=== PATIENT | female | born 1965 | race Caucasian/White ===

== ENCOUNTER 2021-08-25 10:32 | Day surgery (SDC) | payer MEDICAID, SELFPAY ==
[2021-08-25] VITALS (41 sets, daily range): BP systolic 92–119; BP diastolic 43–91; PULSE 51–95; RESP 16–22; TEMP 35.7–36.9; O2SAT 90–100; BMI 28.3
[2021-08-25] MEDS: LACTATED RINGERS 1000 ML 1,000 ML 100 ML IV (11:00)
[2021-08-25] MEDS: SODIUM CHLORIDE 0.9 % (FLUSH) 10 ML SYRINGE IVF (11:20)
[2021-08-25] MEDS: OXYCODONE (CR) 10 MG TAB.ER.12H PO (11:45)
[2021-08-25] MEDS: ACETAMINOPHEN 500 MG TABLET 1000 MG PO ×3 (11:45→23:28)
[2021-08-25] MEDS: CELECOXIB 200 MG CAPSULE PO ×2 (11:45→20:11)
[2021-08-25] MEDS: MIDAZOLAM HCL 1 MG/ML inj IVP (11:55)
[2021-08-25] MEDS: fentaNYL 100 MCG/2 ML inj IVP (11:55)
--- NOTE | 2021-08-25 12:07 | SUR.PREOP ---
TIME?OUT:?1150, right knee PT/RN/MDA?VERIFICATION?OF?SURGICAL?SITE,?PROCEDURE,?AND?CONSENT OBTAINED?PRIOR?TO?INVASIVE?PROCEDURE.
[2021-08-25] MEDS: CEFAZOLIN 2 GM INJ IVP (12:27)
--- NOTE | 2021-08-25 12:58 | W.PM.NB ---
Nerve Block Nerve Block Time Seen by Provider: 11:55 Date Seen: 08/25/21 Type of block requested by surgeon for post-operative analgesia: adductor canal Side: right Time out performed: Yes Verification of patient name: Yes Verification of date of : Yes Site marking: site marked Name of person performing procedure: Yair Assistants, if any: Claudettembrogdarrel Continuous monitoring Was continuous monitoring of O2 sat, B/P, cardiac rehabilitation specialist, recorded every 15 minutes?: Yes Procedure Checklist: sterile prep, needles and gloves Ultrasound guided. Images saved: Yes Medications given in 5ml increments after negative aspiration: Ropivicaine %: 0.5 mL: 20 Needle gauge: 22 Decadron (mg): 10 Precedex (mcg): 25 Patient tolerated procedure well: Yes Additional comments: Needle noted adjacent to nerve
--- NOTE | 2021-08-25 12:59 | P.NB_ITS ---
Nerve Block Nerve Block Time Seen by Provider: 11:55 Date Seen: 08/25/21 Type of block requested by surgeon for post-operative analgesia: geniculars Side: right Time out performed: Yes Verification of patient name: Yes Verification of date of : Yes Site marking: site marked Name of person performing procedure: Yair Continuous monitoring Was continuous monitoring of O2 sat, B/P, installation & maintenance executive, recorded every 15 minutes?: Yes Procedure Checklist: sterile prep, needles and gloves Medications given in 5ml increments after negative aspiration: Ropivicaine %: 0.5 mL: 9 Needle gauge: 25 Patient tolerated procedure well: Yes
--- NOTE | 2021-08-25 13:50 | P.ORPRC_ITS ---
Procedure Note Date of procedure: 08/25/21 Procedure: SURGEON: Cristo Delgado MD HUMAN RESOURCE MANAGER: ANGEL Lopez PREOPERATIVE DIAGNOSIS: Right knee osteoarthritis POSTOPERATIVE DIAGNOSIS: Right knee osteoarthritis NAME OF OPERATION: Right total knee arthroplasty ANESTHESIA: Spinal ESTIMATED BLOOD LOSS: 0 mL COMPLICATIONS: None SPECIMENS: None DRAINS: None PREOPERATIVE ANTIBIOTICS: Ancef 2 grams IMPLANTS: 1. J&J Attune # 7 posterior stabilized femur 2. #6 fixed-bearing tibia 3. # 7 posterior stabilized, 5 mm fixed-bearing polyethylene 4. 41 patella INDICATIONS: The patient is a 55-year-old female with a longstanding history of severe, unrelenting right knee pain secondary to end-stage (grade IV) right knee osteoarthritis. Despite appropriate nonoperative management, including activity modification, anti-inflammatories, [id number] pain medication, bracing, physical therapy, and injections they continue to have pain and disability. Operative intervention was offered. The risks, benefits and expected outcomes were discussed in detail. These included but were not limited to: Infection, bleeding, injury to blood vessel or nerve, venous thromboembolism. All questions were answered to their satisfaction. Use of an registered dental assistant rda was necessary throughout the case for patient positioning and safety, soft tissue retraction, and closure. PROCEDURE: Spinal anesthesia was administered. The patient was placed supine on the operating table. The registered dental assistant rda made sure the patient was positioned appropriately. The lower extremity was prepped and draped in the usual sterile fashion. The limb was exsanguinated with the Donte bandage. The pneumatic tourniquet was inflated to 300 mmHg. A standard anterior incision was made with the knee in flexion. Subcutaneous dissection was sharply taken through fascial layer #1. Full-thickness medial and lateral flaps were elevated. The registered dental assistant rda retracted the soft tissues and protected them throughout the case. A standard medial parapatellar approach was made. The patella was everted. The infrapatellar fat pad was preserved. The menisci and cruciate ligaments were sharply d?brided. Marginal osteophytes were d?brided with the rongeur. The drill was used to penetrate the femoral canal. The canal was aspirated and irrigated with pulse lavage. The intramedullary femoral guide was placed for a 5-degree valgus cut, removing 10 mm off the distal femur. The saw was used to make the cut. Whitesides line and the trans epicondylar axis were marked. The femoral sizing guide was pinned onto the distal femur. Three degrees of external rotation nicely parallels the transepicondylar axis. Pins were placed for posterior referencing. The four-in-one cutting guide was pinned onto the distal femur. The anterior, posterior, and chamfer cuts were made. The registered dental assistant rda protected the collateral ligaments. The box cutting guide was pinned. The box cuts were made. The boxed trial was placed and was an excellent fit. Drill holes for the lugs were made. Attention was then turned to the proximal tibia. The extramedullary tibial guide was placed for a neutral varus/valgus cut with 5 degrees of posterior slope, removing 2 mm based off the medial tibial surface. The registered dental assistant rda protected the collateral ligaments and the neurovascular bundle. The saw was used to make the cut. Trial components were placed. The knee was tight in both flexion and extension. Therefore, the guide was replaced, advancing it 2 more mm distally. The saw was used to make the cut again. Trial components were placed and now the knee was nicely balanced in both flexion and extension. Rotation of the tibial component was matched to the femur in full extension, matched to our tibial cutting pins, and marked with cautery. The trial components were removed. The tray was pinned by the registered dental assistant rda and the drill and the punch were used. The tray was removed. The punch was used again. We placed a bone plug in the femoral canal. Attention was then turned to the patella. [place] patellar thickness was 26 mm. The lobster claw resection guide was used with the 9.5 mm stacie. The saw was used to make the cut. Drill holes were made by the registered dental assistant rda. The trial was placed and was an excellent fit. Cancellous surfaces were irrigated with pulse lavage and thoroughly dried by the registered dental assistant rda. We cemented the tibial component, then the femoral component. A trial spacer was placed. The knee was brought into full extension. We then cemented the patellar component. Excessive cement was removed. The cement was allowed to harden. Any remaining excessive cement was removed with the osteotome. We impacted the 5 mm polyethylene onto the tibial tray. The knee was taken through a range of motion and was found to be nicely balanced in both flexion and extension. The patella tracks centrally. The registered dental assistant rda did a three minute dilute Betadine solution soak. The registered dental assistant rda irrigated the wound with 3 liters of normal saline via pulse lavage. The registered dental assistant rda reapproximated the extensor mechanism with #1 Vicryl in an interrupted [id number] fashion. The registered dental assistant rda then ran the extensor mechanism with a #1 PDO Stratafix. The registered dental assistant rda closed the subcutaneous tissues with a 3-0 Stratafix and the skin with a running 3-0 Stratafix in a subcuticular fashion. Glue was used to seal the skin. The registered dental assistant rda placed a dry dressing, IRMA stocking, and Polar Care. Sponge and needle counts were correct x2. The patient tolerated the procedure well. There were no apparent complications. They were carefully transferred to the hospital bed and taken to the postanesthesia care unit in satisfactory condition. PLAN: The patient will be mobilized with physical therapy. Aspirin will be used for DVT prophylaxis. They will be discharged to home once medically appropriate.
--- NOTE | 2021-08-25 14:26 | W.ANESCHARGE ---
Anesthesia Charges Start Date/Time Anesthesia Start Date: 08/25/21 Anesthesia Start Time: 12:17 Stop Date/Time Anesthesia Stop Date: 08/25/21 Anesthesia Stop Time: 14:20 Summary Emergency: No
--- NOTE | 2021-08-25 14:29 | CRLHL7_ITS ---
For Patients: As a result of the Cures Act, medical imaging exams and procedure reports are released immediately into your electronic medical record. You may view this report before your referring provider. If you have questions, please contact your health care provider. Indication: POST OP TKA Technique: Two views right knee Findings/Impression: Hardware from a right total knee arthroplasty is in satisfactory position. Bone alignment is normal. No sign of acute fracture. Postop changes are within normal limits. Dictated by Chris Ramos MD @ 08/26/2021 8:29:53 AM (Electronically Signed)
--- NOTE | 2021-08-25 15:06 | W.ANESCHARGE ---
Anesthesia Charges Start Date/Time Anesthesia Start Date: 08/25/21 Anesthesia Start Time: 12:17 Stop Date/Time Anesthesia Stop Date: 08/25/21 Anesthesia Stop Time: 14:20 Summary Emergency: No
[2021-08-25] MEDS: HYDROmorphone 0.5 mg/0.5 ml inj IVP (15:30)
--- NOTE | 2021-08-25 15:51 | PM.IMCN1 ---
Date of Consult Consult date: 08/25/21 Primary Care Provider: Fahad Boateng MD Consult Narrative Reason for consult: Medical management of comorbidities Narrative: Ivone Bell is a 55 year old female who presented to the hospital today for a right TKA with orthopedic surgery. Her procedure went well and she has no concerns for the hospitalist staff at this time. Her medical comorbidities include factor 5 Leiden deficiency (patient was tested for this after a sister had a DVT. She believes she is heterozygous for the mutation and has never had a blood clot herself), mild intermittent asthma, anxiety, allergic rhinitis, migraine headaches, and GERD. She has had surgery in the past without surgical or anesthetic complications. She has never had any postoperative complications such as DVT or PE. Ivone lives independently, and will be staying with her mother in [place], [place] during the postoperative period. She is a nonsmoker, non-ETOH user. Review of Systems Status of ROS: Reports: 10 or more systems reviewed and unremarkable except as noted in History and below PFSH PFS Medical History (Updated 08/25/21 @ 15:57 by Fátima Soriano MD) Anxiety Depression Factor 5 Leiden mutation, heterozygous History of ganglion cyst History of migraine Surgical History (Updated 08/25/21 @ 15:57 by Fátima Soriano MD) History of arthroscopy of left knee (2014) History of hernia repair Status post carpal tunnel release Status post cervical spinal arthrodesis Status post Siddharth fundoplication Status post tubal ligation Total knee replacement status Family History (Updated 08/23/21 @ 14:05 by Purvi Velasquez RN) Maternal Grandmother Heart attack Colorectal cancer Mother Factor 5 Leiden mutation, heterozygous Sister Factor 5 Leiden mutation, heterozygous Depression Social History (Updated 08/24/21 @ 14:41 by Fahad Boateng MD) Narrative: Marital Status: , 2 adult children, walks for exercise 5-6 days per week. 5 siblings Occupation: Caregiver Alcohol Use: Yes (occ) 6 drinks per week. No tobacco or recreational drug use. Highest level of school completed/degree received: 12th grade, no diploma Smoking Status: Former smoker What tobacco products do you use: cigarettes Smoking quit date/years: <= 15 years ago Do you use any of these nicotine containing products: None Second hand tobacco smoke exposure: Yes How often do you have a drink containing alcohol: never AUDIT-C Alcohol total score: 0 Non-prescribed substance use: denies use and over the counter (eg: immodium) Non-prescribed substance use details: vitamin D, zinc, Tylenol Caffeine: Yes (Monster energy drink 1/day; Coke 1-2 cans/day) Meds Home Medications and Allergies Home Medications Medication Instructions Recorded Confirmed Type albuterol sulfate 90 mcg/actuation 2 inh INHALATION Q6H PRN 08/10/21 08/25/21 History aerosol inhaler cetirizine 10 mg tablet 10 mg PO DAILY 08/10/21 08/25/21 History escitalopram oxalate 20 mg tablet 20 mg PO DAILY 08/10/21 08/25/21 History fluticasone propionate 50 1 spray INTRANASAL BID PRN g 08/10/21 08/25/21 History mcg/actuation nasal spray,suspension lorazepam 1 mg tablet 1 mg PO BID PRN tab 08/10/21 08/25/21 History cholecalciferol (vitamin D3) 50 2,000 unit PO DAILY 08/24/21 08/25/21 History mcg (2,000 unit) tablet (D3 DOTS) zinc sulfate 50 mg zinc (220 mg) 50 mg PO DAILY 08/24/21 08/25/21 History capsule (Orazinc) Home Medication Comments: Confirmed with patient Allergies Allergy/AdvReac Type Severity Reaction Status Date / Time Penicillins Allergy Mild Rash Verified 08/25/21 10:59 tomato AdvReac Intermediate Rash Verified 08/25/21 10:59 Gold AdvReac Intermediate Rash Uncoded 08/25/21 10:59 Exam Narrative: Exam Narrative: GEN: Alert and oriented, answering questions appropriately HEENT: Normal external ears, EOMIs bilaterally, no scleral icterus CV: RRR, No concerning murmurs, rubs, or gallops R: LCTA bilaterally without concerning wheezing, rales, or rhonchi. Air movement is adequate Ext: wwp, no concerning edema, wearing Ruperto hose Skin: No concerning skin lesions or rashes on exposed skin Neuro: Nonfocal Psych: Appropriate Const: Vital Signs, click to edit/add: Vital Signs - 24 hr 08/25/21 11:15 08/25/21 11:55 08/25/21 12:00 Temperature 97.6 F Pulse Rate 60 59 L 64 Respiratory Rate 20 20 20 Blood Pressure 119/74 118/70 112/67 Pulse Oximetry 95 95 08/25/21 12:10 08/25/21 14:17 08/25/21 14:20 Temperature 97.8 F Pulse Rate 58 L 60 67 Respiratory Rate 16 18 16 Blood Pressure 102/61 98/67 98/61 Pulse Oximetry 95 95 97 08/25/21 14:22 08/25/21 14:25 08/25/21 14:27 Temperature Pulse Rate 66 60 67 Respiratory Rate 18 Blood Pressure 100/58 L 92/67 92/57 L Pulse Oximetry 98 95 97 08/25/21 14:30 08/25/21 14:32 08/25/21 14:35 Temperature Pulse Rate 68 63 64 Respiratory Rate 16 17 Blood Pressure 99/65 99/65 107/90 H Pulse Oximetry 96 97 98 08/25/21 14:38 08/25/21 14:40 08/25/21 14:42 Temperature Pulse Rate 61 57 L 71 Respiratory Rate 17 Blood Pressure 107/90 H 99/74 99/74 Pulse Oximetry 99 94 94 08/25/21 14:45 08/25/21 14:48 08/25/21 14:50 Temperature Pulse Rate 51 L 55 L 57 L Respiratory Rate 18 20 Blood Pressure 94/60 94/60 100/43 L Pulse Oximetry 96 100 98 08/25/21 14:52 08/25/21 14:55 08/25/21 14:57 Temperature Pulse Rate 57 L 66 59 L Respiratory Rate 18 Blood Pressure 100/43 L 105/63 105/63 Pulse Oximetry 99 99 93 08/25/21 15:00 08/25/21 15:02 08/25/21 15:03 Temperature 97.8 F Pulse Rate 54 L 53 L 52 L Respiratory Rate 18 Blood Pressure 107/67 107/67 Pulse Oximetry 98 99 98 08/25/21 15:04 08/25/21 15:05 08/25/21 15:06 Temperature Pulse Rate 62 63 58 L Respiratory Rate Blood Pressure Pulse Oximetry 97 98 100 Assessment and Plan Assessment and plan (1) Factor 5 Leiden mutation, heterozygous: Status: Acute (2) Anxiety and depression: Status: Acute (3) Asthma: Status: Acute (4) Anxiety: Status: Acute (5) Total knee replacement status: Status: Acute Plan Continue home medications for above-mentioned comorbidities. Patient is heterozygous for factor 5 Leiden mutation with no personal history of DVT or PE. Given risk, would use Xarelto for prophylaxis. Anticipate routine postoperative cares and course.
[2021-08-25] MEDS: OXYCODONE 5 MG TABLET PO ×3 (16:22→22:57)
[2021-08-25 17:56] LABS: Sodium* 138 mmol/L (135-149)
[2021-08-25] MEDS: CEFAZOLIN 2 GM in 0.9 % SODIUM CHLORIDE Mini-bag 100 ML IVPB (18:45)
--- NOTE | 2021-08-25 19:20 | PC.NURSE ---
Pt return from OR at 1500, seen by Dr Soriano. Pt pain 3-5/10 and controlled with Dilaudid x1 for burning pain and then Oxycodone with a large reg. diet. See charting for VS. Up with 2 assist and walker, needed only SBA.
[2021-08-25] MEDS: SENNOSIDES 1 TAB TABLET 2 TAB PO (20:11)
--- NOTE | 2021-08-25 22:56 | PC.NURSE ---
Shift note 19-23: Pt alert, uses call light for needs. Up to BR w/ SBA and walker, moving well. Rating pain to R knee 3-6/10, verbalizes adequate pain relief utilizing scheduled Tylenol/Celebrex, PRN Oxycodone, and cryocuff to surgical site. R knee drsg CDI, CMS intact. Plans to DC home w/ mother tomorrow.
[2021-08-26] MEDS: OXYCODONE 5 MG TABLET PO ×4 (01:50→12:35)
[2021-08-26] MEDS: CEFAZOLIN 2 GM in 0.9 % SODIUM CHLORIDE Mini-bag 100 ML IVPB ×2 (01:50→09:31)
[2021-08-26 03:00] VITALS: BP 123/76; PULSE 79; RESP 18; TEMP 36.7
[2021-08-26] MEDS: HYDROmorphone 0.5 mg/0.5 ml inj IVP (04:24)
--- NOTE | 2021-08-26 05:30 | PC.NURSE ---
[id number] Pt with fluctuating pain throughout night, prn oxy administered with minimal relief, prn dilaudid given x1 and which point pt able to sleep. Up to br x2, voiding well, walked halls x1, tolerated activity but had increased R knee pain after. Up to recliner approx 0430. cyrocuff to R knee throughout shift, tolerating oral intake, denies N/V. pt states she has factor 5 educated on s/s of blood clot.
[2021-08-26] MEDS: ACETAMINOPHEN 500 MG TABLET 1000 MG PO ×2 (05:53→12:34)
[2021-08-26 06:50] LABS: Basophils Absolute Auto 0.01 K/uL (0.00-0.30); Basophils Percent Auto 0.1 % (0.0-3.0); Hematocrit 36.7 % (33.0-51.0); Hemoglobin* 11.8 gm/dL (12.0-16.0); Immature Granulocytes Abs Auto 0.01 K/uL (0.00-0.30); Lymphocytes Percent Auto 9.9 % (20-44); Mean Corpuscular HGB Conc 32 gm/dL (32-36); Mean Corpuscular Hemoglobin 28 pg (26-34); Mean Corpuscular Volume 88 fL (80-100); Monocytes Percent Auto 7.7 % (0.0-11.0); Neutrophils Percent Auto 82.2 % (42.0-72.0); Platelet Count* 320 K/uL (140-440); RDW Coefficient of Variation % 12.9 % (11.5-15.5); Red Blood Count 4.17 m/uL (4.00-5.20); White Blood Count* 10.96 K/uL (4.50-11.00)
[2021-08-26 07:00] VITALS: BP 131/80; PULSE 76; RESP 18; TEMP 36.7; O2SAT 98
[2021-08-26 07:02] LABS: Slide Review Reflex No
[2021-08-26 07:09] LABS: INR 0.98 (0.91-1.10); Prothrombin Time 13.3 Seconds
[2021-08-26 07:11] LABS: Chloride* 106 mmol/L (96-114)
[2021-08-26 07:12] LABS: Sodium* 136 mmol/L (135-149)
[2021-08-26 07:15] LABS: Carbon Dioxide* 24 mmol/L (20-32)
[2021-08-26] MEDS: CELECOXIB 200 MG CAPSULE PO (09:28)
[2021-08-26] MEDS: SENNOSIDES 1 TAB TABLET 2 TAB PO (09:29)
[2021-08-26] MEDS: RIVAROXABAN 10 MG TABLET PO (09:29)
--- NOTE | 2021-08-26 09:56 | PM.ORPN ---
Subjective Subjective Time Seen by Provider: 07:30 Date Seen: 08/26/21 Principal diagnosis: Status post right knee replacement Interval history: Ivone is comfortable this morning. She plans to discharge to home today. Ortho Exam Narrative Exam Narrative: Alert and oriented x3. Patient is in no acute distress. Converses without labored breathing. Hearing is grossly intact. Ambulates with a walker. Examination of the right knee shows the incision is covered with an intact dressing. Mild effusion. Mild soft tissue edema about the right knee. Bilateral calves are soft and nontender. CMS intact right lower extremity. Const Vital Signs, click to edit/add: Vital Signs - 24 hr 08/25/21 11:15 08/25/21 11:55 08/25/21 12:00 Temperature 97.6 F Pulse Rate 60 59 L 64 Pulse Rate [Left Pulse Oximeter] Respiratory Rate 20 20 20 Blood Pressure 119/74 118/70 112/67 Blood Pressure [Right Arm] Pulse Oximetry 95 95 08/25/21 12:10 08/25/21 14:17 08/25/21 14:20 Temperature 97.8 F Pulse Rate 58 L 60 67 Pulse Rate [Left Pulse Oximeter] Respiratory Rate 16 18 16 Blood Pressure 102/61 98/67 98/61 Blood Pressure [Right Arm] Pulse Oximetry 95 95 97 08/25/21 14:22 08/25/21 14:25 08/25/21 14:27 Temperature Pulse Rate 66 60 67 Pulse Rate [Left Pulse Oximeter] Respiratory Rate 18 Blood Pressure 100/58 L 92/67 92/57 L Blood Pressure [Right Arm] Pulse Oximetry 98 95 97 08/25/21 14:30 08/25/21 14:32 08/25/21 14:35 Temperature Pulse Rate 68 63 64 Pulse Rate [Left Pulse Oximeter] Respiratory Rate 16 17 Blood Pressure 99/65 99/65 107/90 H Blood Pressure [Right Arm] Pulse Oximetry 96 97 98 08/25/21 14:38 08/25/21 14:40 08/25/21 14:42 Temperature Pulse Rate 61 57 L 71 Pulse Rate [Left Pulse Oximeter] Respiratory Rate 17 Blood Pressure 107/90 H 99/74 99/74 Blood Pressure [Right Arm] Pulse Oximetry 99 94 94 08/25/21 14:45 08/25/21 14:48 08/25/21 14:50 Temperature Pulse Rate 51 L 55 L 57 L Pulse Rate [Left Pulse Oximeter] Respiratory Rate 18 20 Blood Pressure 94/60 94/60 100/43 L Blood Pressure [Right Arm] Pulse Oximetry 96 100 98 08/25/21 14:52 08/25/21 14:55 08/25/21 14:57 Temperature Pulse Rate 57 L 66 59 L Pulse Rate [Left Pulse Oximeter] Respiratory Rate 18 Blood Pressure 100/43 L 105/63 105/63 Blood Pressure [Right Arm] Pulse Oximetry 99 99 93 08/25/21 15:00 08/25/21 15:02 08/25/21 15:03 Temperature 97.8 F Pulse Rate 54 L 53 L 52 L Pulse Rate [Left Pulse Oximeter] Respiratory Rate 18 Blood Pressure 107/67 107/67 Blood Pressure [Right Arm] Pulse Oximetry 98 99 98 08/25/21 15:04 08/25/21 15:05 08/25/21 15:06 Temperature Pulse Rate 62 63 58 L Pulse Rate [Left Pulse Oximeter] Respiratory Rate Blood Pressure Blood Pressure [Right Arm] Pulse Oximetry 97 98 100 08/25/21 15:35 08/25/21 15:45 08/25/21 16:00 Temperature 96.3 F L 96.4 F L Pulse Rate Pulse Rate [Left Pulse Oximeter] 55 L 65 63 Respiratory Rate 16 20 16 Blood Pressure Blood Pressure [Right Arm] 100/59 L 99/53 L 98/71 Pulse Oximetry 97 90 99 08/25/21 16:13 08/25/21 16:15 08/25/21 16:30 Temperature 96.8 F L Pulse Rate 62 Pulse Rate [Left Pulse Oximeter] 58 L 74 Respiratory Rate 20 20 18 Blood Pressure Blood Pressure [Right Arm] 115/66 107/91 H Pulse Oximetry 98 99 08/25/21 16:45 08/25/21 17:15 08/25/21 18:15 Temperature 97.1 F L 97.4 F L Pulse Rate Pulse Rate [Left Pulse Oximeter] 66 91 90 Respiratory Rate 20 16 16 Blood Pressure Blood Pressure [Right Arm] 108/68 108/68 110/65 Pulse Oximetry 98 98 99 08/25/21 19:00 08/25/21 19:08 08/25/21 19:15 Temperature 97.3 F L 98.3 F Pulse Rate 95 Pulse Rate [Left Pulse Oximeter] 80 93 Respiratory Rate 16 22 18 Blood Pressure 106/57 L Blood Pressure [Right Arm] 106/57 L 102/58 L Pulse Oximetry 98 96 100 08/25/21 20:05 08/25/21 23:30 08/26/21 03:00 Temperature 98.3 F 98.4 F 98.1 F Pulse Rate 92 Pulse Rate [Left Pulse Oximeter] 80 79 Respiratory Rate 18 18 18 Blood Pressure 117/67 Blood Pressure [Right Arm] 116/72 123/76 Pulse Oximetry 97 97 08/26/21 07:00 Temperature 98.1 F Pulse Rate Pulse Rate [Left Pulse Oximeter] 76 Respiratory Rate 18 Blood Pressure Blood Pressure [Right Arm] 131/80 Pulse Oximetry 98 Assessment and Plan Assessment and plan (1) Factor 5 Leiden mutation, heterozygous: Status: Acute (2) Anxiety and depression: Status: Acute (3) Asthma: Status: Acute (4) Anxiety: Status: Acute (5) Total knee replacement status: Status: Acute Plan Plan for discharge is today to home if they meet discharge criteria. She has factor 5 Leiden. DVT prophylaxis includes Xarelto 10 mg daily for total of 13 days, then aspirin 81 mg b.i.d. for 17 days. Ruperto stockings x1 month may remove for 1 hr per day, frequent ambulation Remove dressing in 1 week. Observe wound and phone Orthopedics with any questions or concerns Return to clinic in 1 week for a wound check Return to clinic in [address] Delgado Minimize narcotic use. Wean off and discontinue soon as possible. Activities as tolerated. No strenuous activity. Outpatient physical therapy as scheduled. Ice and elevate the operative extremity. No restriction on ice.
--- NOTE | 2021-08-26 11:57 | PC.NURSE ---
Addendum entered by Toya Montoya RN 08/26/21 16:55: Pt. Discharged from med/surg at 1510 via wheelchair accompanied by sister. IV removed, intact and patent. Belongings list and discharge instructions given and signed. Original Note: Pt. alert and oriented x3, PRN oxy 10mg administered after PT activity, tolerated ambulating w/PT well except for pain in right knee. cyrocuff to R knee throughout shift, tolerating oral intake, denies N/V. Called ortho at 1100 to confirm PT orders were sent by Sandy, ortho confirmed orders were faxed 08/16/21.
--- NOTE | 2021-08-26 13:09 | P.DS_ITS ---
DS: Providers Provider Time Seen by Provider: 08:00 Date Seen: 08/26/21 Date of admission: 08-25-21 Primary care physician: Fahad Boateng MD Consults: 08/25/21 15:52 Consult to Occupational Therapy [CONS] Routine Comment: Reason(s) for OT Consult:: ADLs Prior to Discharge Any Restrictions?:: See Comment Comment: See nursing activity order for any restrictions. Consult to Physical Therapy [CONS] Routine Comment: Ambulate in the liu today. Reason(s) for PT Consult:: TKA TX Protocol POD#0 Any Restrictions?:: See Comment Comment: See nursing activity order for any restrictions. Consult to Physician [CONS] Routine Comment: Consulting Provider: Hospitalists Has provider been notified: No Consult to [facility] [employer] [CONS] Routine Comment: Reason for Consult:: Discharge Planning Needs Attending Physician on discharge: Cristo Delgado MD Date of Discharge: 08/26/21 DS: Diagnosis Discharge Diagnosis (1) Total knee replacement status: Status: Acute DS: Summary Time Spent with Patient Time attestation: Total time spent providing and/or coordinating discharge services: Exam Const: Vital Signs, click to edit/add: Vital Signs - 24 hr 08/25/21 14:17 08/25/21 14:20 08/25/21 14:22 Temperature 97.8 F Pulse Rate 60 67 66 Pulse Rate [Left P ulse Oximeter] Respiratory Rate 18 16 Blood Pressure 98/67 98/61 100/58 L Blood Pressure [Ri ght Arm] Pulse Oximetry 95 97 98 08/25/21 14:25 08/25/21 14:27 08/25/21 14:30 Temperature Pulse Rate 60 67 68 Pulse Rate [Left P ulse Oximeter] Respiratory Rate 18 16 Blood Pressure 92/67 92/57 L 99/65 Blood Pressure [Ri ght Arm] Pulse Oximetry 95 97 96 08/25/21 14:32 08/25/21 14:35 08/25/21 14:38 Temperature Pulse Rate 63 64 61 Pulse Rate [Left P ulse Oximeter] Respiratory Rate 17 Blood Pressure 99/65 107/90 H 107/90 H Blood Pressure [Ri ght Arm] Pulse Oximetry 97 98 99 08/25/21 14:40 08/25/21 14:42 08/25/21 14:45 Temperature Pulse Rate 57 L 71 51 L Pulse Rate [Left P ulse Oximeter] Respiratory Rate 17 18 Blood Pressure 99/74 99/74 94/60 Blood Pressure [Ri ght Arm] Pulse Oximetry 94 94 96 08/25/21 14:48 08/25/21 14:50 08/25/21 14:52 Temperature Pulse Rate 55 L 57 L 57 L Pulse Rate [Left P ulse Oximeter] Respiratory Rate 20 Blood Pressure 94/60 100/43 L 100/43 L Blood Pressure [Ri ght Arm] Pulse Oximetry 100 98 99 08/25/21 14:55 08/25/21 14:57 08/25/21 15:00 Temperature 97.8 F Pulse Rate 66 59 L 54 L Pulse Rate [Left P ulse Oximeter] Respiratory Rate 18 18 Blood Pressure 105/63 105/63 107/67 Blood Pressure [Ri ght Arm] Pulse Oximetry 99 93 98 08/25/21 15:02 08/25/21 15:03 08/25/21 15:04 Temperature Pulse Rate 53 L 52 L 62 Pulse Rate [Left P ulse Oximeter] Respiratory Rate Blood Pressure 107/67 Blood Pressure [Ri ght Arm] Pulse Oximetry 99 98 97 08/25/21 15:05 08/25/21 15:06 08/25/21 15:35 Temperature 96.3 F L Pulse Rate 63 58 L Pulse Rate [Left P ulse Oximeter] 55 L Respiratory Rate 16 Blood Pressure Blood Pressure [Ri ght Arm] 100/59 L Pulse Oximetry 98 100 97 08/25/21 15:45 08/25/21 16:00 08/25/21 16:13 Temperature 96.4 F L 96.8 F L Pulse Rate 62 Pulse Rate [Left P ulse Oximeter] 65 63 Respiratory Rate 20 16 20 Blood Pressure Blood Pressure [Ri ght Arm] 99/53 L 98/71 Pulse Oximetry 90 99 08/25/21 16:15 08/25/21 16:30 08/25/21 16:45 Temperature 97.1 F L Pulse Rate Pulse Rate [Left P ulse Oximeter] 58 L 74 66 Respiratory Rate 20 18 20 Blood Pressure Blood Pressure [Ri ght Arm] 115/66 107/91 H 108/68 Pulse Oximetry 98 99 98 08/25/21 17:15 08/25/21 18:15 08/25/21 19:00 Temperature 97.4 F L Pulse Rate Pulse Rate [Left P ulse Oximeter] 91 90 80 Respiratory Rate 16 16 16 Blood Pressure Blood Pressure [Ri ght Arm] 108/68 110/65 106/57 L Pulse Oximetry 98 99 98 08/25/21 19:08 08/25/21 19:15 08/25/21 20:05 Temperature 97.3 F L 98.3 F 98.3 F Pulse Rate 95 92 Pulse Rate [Left P ulse Oximeter] 93 Respiratory Rate 22 18 18 Blood Pressure 106/57 L 117/67 Blood Pressure [Ri ght Arm] 102/58 L Pulse Oximetry 96 100 97 08/25/21 23:30 08/26/21 03:00 08/26/21 07:00 Temperature 98.4 F 98.1 F 98.1 F Pulse Rate Pulse Rate [Left P ulse Oximeter] 80 79 76 Respiratory Rate 18 18 18 Blood Pressure Blood Pressure [Ri ght Arm] 116/72 123/76 131/80 Pulse Oximetry 97 98 DS: Data Data Completed and Pending Labs on day of discharge: Labs from last 24 hours 08/26/21 08/26/21 08/26/21 05:45 05:45 05:45 WBC 10.96 RBC 4.17 Hgb 11.8 L Hct 36.7 MCV 88 MCH 28 MCHC 32 RDW Coeff of Cesar 12.9 Plt Count 320 Neut % (Auto) 82.2 H Lymph % (Auto) 9.9 L [place] % (Auto) 7.7 Eos % (Auto) 0.0 Baso % (Auto) 0.1 Neut # (Auto) 9.00 H Lymph # (Auto) 1.10 [place] # (Auto) 0.80 Eos # (Auto) 0.00 Baso # (Auto) 0.01 Abs Immat Gran (auto) 0.01 INR 0.98 Sodium 136 Potassium 4.0 Chloride 106 Carbon Dioxide 24 08/25/21 17:29 WBC RBC Hgb Hct MCV MCH MCHC RDW Coeff of Cesar Plt Count Neut % (Auto) Lymph % (Auto) [place] % (Auto) Eos % (Auto) Baso % (Auto) Neut # (Auto) Lymph # (Auto) [place] # (Auto) Eos # (Auto) Baso # (Auto) Abs Immat Gran (auto) INR Sodium 138 Potassium Chloride Carbon Dioxide Discharge Plan Discharge Disposition: Home, Self-Care Discharging Surgeon: Cristo Delgado Follow-Up Appointment: One week Prescriptions: New acetaminophen 500 mg Tablet 500 - 1,000 mg PO Q6H MDD 4000mg per day PRNQty: 100 0RF oxycodone 5 mg Tablet 2.5 - 5 mg PO Q4-6H PRN (Reason: Pain) Qty: 42 0RF Rx Instructions: minimize, discontinue as soon as possible Xarelto 10 mg Tablet 10 mg PO DAILY Qty: 12 0RF Rx Instructions: for dvt prophylaxis, take this medication daily for 12 days, then Aspirin 81mg twice daily for 17 days sennosides [Senna Lax] 8.6 mg Tablet 2 tab PO BID PRNQty: 100 0RF aspirin [Aspirin Childrens] 81 mg tablet,chewable 81 mg PO BID 17 Days Qty: 34 0RF Rx Instructions: take Aspirin for 17 days after you have completed Xarelto for 12 days. No Action lorazepam 1 mg tablet 1 mg PO BID PRN (Reason: anxiety) 0RF Rx Instructions: Take as needed for severe anxiety. escitalopram oxalate 20 mg tablet 20 mg PO DAILY 0RF cetirizine 10 mg tablet 10 mg PO DAILY 0RF albuterol sulfate 90 mcg/actuation HFA aerosol inhaler 2 inh inhalation Q6H PRN0RF fluticasone propionate 50 mcg/actuation spray,suspension 1 spray intranasal BID PRN (Reason: allergy symptoms) 0RF cholecalciferol (vitamin D3) [D3 DOTS] 50 mcg (2,000 unit) tablet 2,000 unit PO DAILY 0RF zinc sulfate [Orazinc] 50 mg zinc (220 mg) capsule 50 mg PO DAILY 0RF Activity Level: Activity as Tolerated and No strenuous activity Activity Detail: Keep dressing on for 1 week. Dressing is waterproof. May shower. Surgical glue covers the wound. Attend Outpatient physical therapy as scheduled. Ice operative extremity without restriction. Wear compression stockings for 1 month post surgery. May remove for 1 hour per day. Notify Orthopedics with any questions or concerns ([phone]). Discharge Diet: Regular Patient Instructions: Acetaminophen (By mouth), Aspirin (By mouth), Oxycodone, Rapid Release (By mouth), Rivaroxaban (By mouth), Senna (By mouth), Knee Replacement (DC) Follow-up: Erichsen, Genny PA [Other] - 08/31/21 2:40 pm (At this follow up appointment they will schedule your appointment to see Dr. Delgado) Fahad Boateng MD [Primary Care Provider] - Discharge Orders: Discharge Order (Routine); Ordered 08/26/21 Ordered By: Andrew Sales
--- NOTE | 2021-08-26 13:58 | P.DS_ITS ---
DS: Providers Provider Date Seen: 08/26/21 Primary care physician: Fahad Boateng MD Consults: Attending Physician on discharge: Cristo Delgado MD Date of Discharge: 08/26/21 DS: Diagnosis Discharge Diagnosis (1) Total knee replacement status: Status: Acute Problem details: Uncomplicated surgery and early postoperative course (2) Factor 5 Leiden mutation, heterozygous: Status: Acute Problem details: Rivaroxaban 10 mg daily for VTE prophylaxis DS: Summary Hospital Course Hospital Course: 55-year-old female admitted to the hospital for right total knee arthroplasty. Procedure was uncomplicated. Postoperative recovery has been uncomplicated. Status at Discharge Functional status at discharge: uses cane/walker Overall status at discharge: patient is back to baseline Time Spent with Patient Time attestation: Total time spent providing and/or coordinating discharge services: Time spent: Less than 30 minutes Exam Narrative: Exam Narrative: She is alert and appears in no distress. Breathing is unlabored. Abdomen is soft without tenderness. She has intact pulses, strength, sensation in both lower extremities. Const: Vital Signs, click to edit/add: Vital Signs - 24 hr 08/25/21 14:17 08/25/21 14:20 08/25/21 14:22 Temperature 97.8 F Pulse Rate 60 67 66 Pulse Rate [Left P ulse Oximeter] Respiratory Rate 18 16 Blood Pressure 98/67 98/61 100/58 L Blood Pressure [Ri ght Arm] Pulse Oximetry 95 97 98 08/25/21 14:25 08/25/21 14:27 08/25/21 14:30 Temperature Pulse Rate 60 67 68 Pulse Rate [Left P ulse Oximeter] Respiratory Rate 18 16 Blood Pressure 92/67 92/57 L 99/65 Blood Pressure [Ri ght Arm] Pulse Oximetry 95 97 96 08/25/21 14:32 08/25/21 14:35 08/25/21 14:38 Temperature Pulse Rate 63 64 61 Pulse Rate [Left P ulse Oximeter] Respiratory Rate 17 Blood Pressure 99/65 107/90 H 107/90 H Blood Pressure [Ri ght Arm] Pulse Oximetry 97 98 99 08/25/21 14:40 08/25/21 14:42 08/25/21 14:45 Temperature Pulse Rate 57 L 71 51 L Pulse Rate [Left P ulse Oximeter] Respiratory Rate 17 18 Blood Pressure 99/74 99/74 94/60 Blood Pressure [Ri ght Arm] Pulse Oximetry 94 94 96 08/25/21 14:48 08/25/21 14:50 08/25/21 14:52 Temperature Pulse Rate 55 L 57 L 57 L Pulse Rate [Left P ulse Oximeter] Respiratory Rate 20 Blood Pressure 94/60 100/43 L 100/43 L Blood Pressure [Ri ght Arm] Pulse Oximetry 100 98 99 08/25/21 14:55 08/25/21 14:57 08/25/21 15:00 Temperature 97.8 F Pulse Rate 66 59 L 54 L Pulse Rate [Left P ulse Oximeter] Respiratory Rate 18 18 Blood Pressure 105/63 105/63 107/67 Blood Pressure [Ri ght Arm] Pulse Oximetry 99 93 98 08/25/21 15:02 08/25/21 15:03 08/25/21 15:04 Temperature Pulse Rate 53 L 52 L 62 Pulse Rate [Left P ulse Oximeter] Respiratory Rate Blood Pressure 107/67 Blood Pressure [Ri ght Arm] Pulse Oximetry 99 98 97 08/25/21 15:05 08/25/21 15:06 08/25/21 15:35 Temperature 96.3 F L Pulse Rate 63 58 L Pulse Rate [Left P ulse Oximeter] 55 L Respiratory Rate 16 Blood Pressure Blood Pressure [Ri ght Arm] 100/59 L Pulse Oximetry 98 100 97 08/25/21 15:45 08/25/21 16:00 08/25/21 16:13 Temperature 96.4 F L 96.8 F L Pulse Rate 62 Pulse Rate [Left P ulse Oximeter] 65 63 Respiratory Rate 20 16 20 Blood Pressure Blood Pressure [Ri ght Arm] 99/53 L 98/71 Pulse Oximetry 90 99 08/25/21 16:15 08/25/21 16:30 08/25/21 16:45 Temperature 97.1 F L Pulse Rate Pulse Rate [Left P ulse Oximeter] 58 L 74 66 Respiratory Rate 20 18 20 Blood Pressure Blood Pressure [Ri ght Arm] 115/66 107/91 H 108/68 Pulse Oximetry 98 99 98 08/25/21 17:15 08/25/21 18:15 08/25/21 19:00 Temperature 97.4 F L Pulse Rate Pulse Rate [Left P ulse Oximeter] 91 90 80 Respiratory Rate 16 16 16 Blood Pressure Blood Pressure [Ri ght Arm] 108/68 110/65 106/57 L Pulse Oximetry 98 99 98 08/25/21 19:08 08/25/21 19:15 08/25/21 20:05 Temperature 97.3 F L 98.3 F 98.3 F Pulse Rate 95 92 Pulse Rate [Left P ulse Oximeter] 93 Respiratory Rate 22 18 18 Blood Pressure 106/57 L 117/67 Blood Pressure [Ri ght Arm] 102/58 L Pulse Oximetry 96 100 97 08/25/21 23:30 08/26/21 03:00 08/26/21 07:00 Temperature 98.4 F 98.1 F 98.1 F Pulse Rate Pulse Rate [Left P ulse Oximeter] 80 79 76 Respiratory Rate 18 18 18 Blood Pressure Blood Pressure [Ri ght Arm] 116/72 123/76 131/80 Pulse Oximetry 97 98 Documenting provider has reviewed patient's vital signs: yes DS: Data Data Completed and Pending Labs on day of discharge: Labs from last 24 hours 08/26/21 08/26/21 08/26/21 05:45 05:45 05:45 WBC 10.96 RBC 4.17 Hgb 11.8 L Hct 36.7 MCV 88 MCH 28 MCHC 32 RDW Coeff of Cesar 12.9 Plt Count 320 Neut % (Auto) 82.2 H Lymph % (Auto) 9.9 L [place] % (Auto) 7.7 Eos % (Auto) 0.0 Baso % (Auto) 0.1 Neut # (Auto) 9.00 H Lymph # (Auto) 1.10 [place] # (Auto) 0.80 Eos # (Auto) 0.00 Baso # (Auto) 0.01 Abs Immat Gran (auto) 0.01 INR 0.98 Sodium 136 Potassium 4.0 Chloride 106 Carbon Dioxide 24 08/25/21 17:29 WBC RBC Hgb Hct MCV MCH MCHC RDW Coeff of Cesar Plt Count Neut % (Auto) Lymph % (Auto) [place] % (Auto) Eos % (Auto) Baso % (Auto) Neut # (Auto) Lymph # (Auto) [place] # (Auto) Eos # (Auto) Baso # (Auto) Abs Immat Gran (auto) INR Sodium 138 Potassium Chloride Carbon Dioxide Discharge Plan Discharge Disposition: Home, Self-Care Discharging Surgeon: Cristo Delgado Follow-Up Appointment: One week Prescriptions: New acetaminophen 500 mg Tablet 500 - 1,000 mg PO Q6H MDD 4000mg per day PRNQty: 100 0RF oxycodone 5 mg Tablet 2.5 - 5 mg PO Q4-6H PRN (Reason: Pain) Qty: 42 0RF Rx Instructions: minimize, discontinue as soon as possible Xarelto 10 mg Tablet 10 mg PO DAILY Qty: 12 0RF Rx Instructions: for dvt prophylaxis, take this medication daily for 12 days, then Aspirin 81mg twice daily for 17 days sennosides [Senna Lax] 8.6 mg Tablet 2 tab PO BID PRNQty: 100 0RF aspirin [Aspirin Childrens] 81 mg tablet,chewable 81 mg PO BID 17 Days Qty: 34 0RF Rx Instructions: take Aspirin for 17 days after you have completed Xarelto for 12 days. No Action lorazepam 1 mg tablet 1 mg PO BID PRN (Reason: anxiety) 0RF Rx Instructions: Take as needed for severe anxiety. escitalopram oxalate 20 mg tablet 20 mg PO DAILY 0RF cetirizine 10 mg tablet 10 mg PO DAILY 0RF albuterol sulfate 90 mcg/actuation HFA aerosol inhaler 2 inh inhalation Q6H PRN0RF fluticasone propionate 50 mcg/actuation spray,suspension 1 spray intranasal BID PRN (Reason: allergy symptoms) 0RF cholecalciferol (vitamin D3) [D3 DOTS] 50 mcg (2,000 unit) tablet 2,000 unit PO DAILY 0RF zinc sulfate [Orazinc] 50 mg zinc (220 mg) capsule 50 mg PO DAILY 0RF Activity Level: Activity as Tolerated and No strenuous activity Activity Detail: Keep dressing on for 1 week. Dressing is waterproof. May shower. Surgical glue covers the wound. Attend Outpatient physical therapy as scheduled. Ice operative extremity without restriction. Wear compression stockings for 1 month post surgery. May remove for 1 hour per day. Notify Orthopedics with any questions or concerns ([phone]). Discharge Diet: Regular Patient Instructions: Acetaminophen (By mouth), Aspirin (By mouth), Oxycodone, Rapid Release (By mouth), Rivaroxaban (By mouth), Senna (By mouth), Knee Replacement (DC) Follow-up: Genny Feliciano [Other] - 08/31/21 2:40 pm (At this follow up appointment they will schedule your appointment to see Dr. Delgado) Fahad Boateng MD [Primary Care Provider] - Discharge Orders: Discharge Order (Routine); Ordered 08/26/21 Ordered By: Andrew Sales
== END 2021-08-26 15:10 | disposition home or self-care (01) ==
LOC: OR 10:38 → MEDSURG 10:39
PROVIDERS: PCP Family Medicine; Visit Provider Orthopaedic Surgery
PROC: (CPT 27447; principal; 2021-08-25 13:30)
DX: M17.11 Unilateral primary osteoarthritis, right knee (principal); D68.51 Activated protein C resistance; K21.9 Gastro-esophageal reflux disease without esophagitis; J45.20 Mild intermittent asthma, uncomplicated; F41.9 Anxiety disorder, unspecified; F32.A Depression, unspecified
CPT/HCPCS: 27447; 1402; 36415; 64447; 64454; 73560; 76942; 80051; 84295; 85025; 85027; 85610; 97110; 97116; 97161; 97165; 97530; 97535; A9270; C1776; J0690; J1100; J1170; J2250; J2370; J2405; J2704; J2795; J3010; J7120